=== PATIENT | female | born 2000 | race Caucasian/White ===

== ENCOUNTER 2018-08-27 08:00 | Outpatient (CLI) | payer OTHER ==
[2018-08-27 22:06] LABS: CANDIDA GROUP DNA NEGATIVE (NEGATIVE); CANDIDA KRUSEI DNA NEGATIVE (NEGATIVE); TRICHOMONAS VAGINALIS DNA NEGATIVE (NEGATIVE)
== END 2018-08-27 23:59 | disposition home or self-care (01) ==
LOC: LAB.R 08:00
PROVIDERS: ATTEND Nurse Practitioner Obstetrics & Gynecology
DX: R30.0 Dysuria (principal); N76.0 Acute vaginitis
CPT/HCPCS: 87086; 87661; 87801

== ENCOUNTER 2019-12-21 17:55 | Emergency (ER) | payer BC, OTHER ==
--- NOTE | 2019-12-21 18:25 | ED Physician Documentation ---
PD HPI ABD PAIN - Stated complaint Stated Complaint: ABD PAIN - Chief complaint Chief Complaint: Abd Pain - History obtained from History obtained from: Patient - Additional information Additional information: 19-year-old woman has had an IUD in place for approximately 2 to 3 years, has been amenorrheic since. She had fairly sudden onset pelvic pain last night, radiates to the back a little bit. There is no associated fever, urinary complaints, trouble with bowel or bladder issues. She never had it before. Review of Systems Constitutional: denies: Fever, Chills GI: reports: Abdominal Pain, Reviewed and negative. denies: Nausea, Vomiting, Constipation, Diarrhea : denies: Dysuria, Frequency PD PAST MEDICAL HISTORY - Past Medical History Past Medical History: No - Past Surgical History Past Surgical History: No - Present Medications Home Medications: Ambulatory Orders Medication Instructions Recorded Confirmed Hydrocodone/Acetaminophen 1 - 2 tab PO Q6H PRN #15 tablet 12/21/19 [Hydrocodone-Acetamin 5-325 mg] - Allergies Allergies/Adverse Reactions: Allergies Allergy/AdvReac Type Severity Reaction Status Date / Time No Known Drug Allergies Allergy Verified 12/21/19 18:16 - Social History Does the pt smoke?: No Smoking Status: Never smoker Does the pt drink ETOH?: Yes Does the pt have substance abuse?: No - Immunizations Immunizations are current?: Yes PD ED PE NORMAL - Vitals Vital signs reviewed: Yes - General General: Alert and oriented X 3, No acute distress - HEENT HEENT: PERRL, EOMI - Neck Neck: Supple, no meningeal sign, No bony TTP - Abdomen Abdomen: Soft, Other (Mild lower abdominal tenderness without surgical signs) - Derm Derm: No rash - Extremities Extremities: No edema, No calf tenderness / cord - Neuro Neuro: Alert and oriented X 3, Normal speech Results - Vitals Vitals: Vital Signs - 24 hr 12/21/19 12/21/19 18:03 18:09 Temperature 37.3 C Heart Rate 104 H 101 H Respiratory 16 16 Rate Blood Pressure 127/88 H 132/85 H O2 Saturation 99 99 Oxygen O2 Source Room air - Labs Labs: Laboratory Tests 12/21/19 12/21/19 12/21/19 18:25 18:31 18:31 WBC 9.7 RBC 4.93 Hgb 15.5 Hct 45.9 MCV 93.1 MCH 31.4 H MCHC 33.8 RDW 12.1 Plt Count 328 MPV 10.8 Neut # (Auto) 6.5 Lymph # (Auto) 2.4 [place] # (Auto) 0.6 Eos # (Auto) 0.1 Baso # (Auto) 0.1 Absolute Nucleated RBC 0.00 Nucleated RBC % 0.0 Sodium 137 Potassium 4.2 Chloride 101 Carbon Dioxide 28 Anion Gap 8.0 BUN 8 Creatinine 0.6 Estimated GFR (MDRD) 126 Glucose 114 H Calcium 10.1 Total Bilirubin 1.1 H AST 23 ALT 26 Alkaline Phosphatase 95 Total Protein 8.1 Albumin 5.1 Globulin 3.0 Albumin/Globulin Ratio 1.7 Lipase 30 Urine Color YELLOW Urine Clarity CLEAR Urine pH 6.5 Ur Specific [place] 1.010 Urine Protein NEGATIVE Urine Glucose (UA) NEGATIVE Urine Ketones NEGATIVE Urine Occult Blood NEGATIVE Urine Nitrite NEGATIVE Urine Bilirubin NEGATIVE Urine Urobilinogen 0.2 (NORMAL) Ur Leukocyte Esterase NEGATIVE Ur Microscopic Review NOT INDICATED Urine Culture Comments NOT INDICATED Urine HCG, Qual NEGATIVE PD MEDICAL DECISION MAKING - ED course ED course: 19-year-old woman with acute sudden onset pelvic pain, ultrasound showing hemorrhagic right ovarian cyst. No sign of torsion. Negative test. Discussed need for repeat ultrasound in about 6 weeks. Departure - Departure Disposition: 01 Home, Self Care Clinical Impression: Cyst of ovary Qualifiers: Laterality: right Qualified Code(s): N83.201 - Unspecified ovarian cyst, right side Condition: Good Record reviewed to determine appropriate education?: Yes Instructions: ED Cyst Ovarian Follow-Up: Jackie Almendarez CNM, [employer] [Provider Admit Priv/Credential] - Prescriptions: Hydrocodone/Acetaminophen [Hydrocodone-Acetamin 5-325 mg] 1 - 2 tab PO Q6H PRN #15 tablet PRN Reason: Pain Comments: Ibuprofen as needed for pain, also the hydrocodone if it is particularly bad. Do not drink or drive while taking the hydrocodone. Follow-up with your supervisor backfilling, recommend repeat ultrasound in approximately 6 weeks to ensure that the cyst has gone away. Return for new or worsening symptoms.
[2019-12-21 18:35] LABS: BILIRUBIN,URINE NEGATIVE (NEGATIVE); GLUCOSE, URINE (UA) NEGATIVE (NEGATIVE); KETONES,URINE (UA) NEGATIVE (NEGATIVE); LEUKOCYTE ESTERASE, URINE NEGATIVE (NEGATIVE); NITRITE,URINE NEGATIVE (NEGATIVE); OCCULT BLOOD,URINE NEGATIVE (NEGATIVE); PH,URINE 6.5 PH (5.0-7.5); PROTEIN,URINE NEGATIVE (NEGATIVE); UROBILINOGEN,URINE 0.2 (NORMAL) E.U./dL (NORMAL)
[2019-12-21 18:42] LABS: BASOPHILS # (AUTO) 0.1 10^3/uL (0.0-0.1); BASOPHILS % (AUTO) 0.6 %; EOSINOPHILS # (AUTO) 0.1 10^3/uL (0.0-0.7); EOSINOPHILS % (AUTO) 0.9 %; HGB - HEMOGLOBIN 15.5 g/dL (12.0-16.0); LYMPHOCYTES # (AUTO) 2.4 10^3/uL (1.5-3.5); LYMPHOCYTES % (AUTO) 24.8 %; MEAN CORPUSCULAR HEMOGLOBIN 31.4 pg (27.0-31.0); MEAN CORPUSCULAR HGB CONC 33.8 g/dL (32.0-36.0); MEAN CORPUSCULAR VOLUME 93.1 fL (81.0-99.0); MEAN PLATELET VOLUME 10.8 fL (7.9-10.8); MONOCYTES # (AUTO) 0.6 10^3/uL (0.0-1.0); MONOCYTES % (AUTO) 6.3 %; NEUTROPHILS # (AUTO) 6.5 10^3/uL (1.5-6.6); NEUTROPHILS % (AUTO) 66.9 %; PLT - PLATELET COUNT 328 10^3/uL (130-450); RED BLOOD COUNT 4.93 10^6/uL (4.20-5.40); RED CELL DISTRIBUTION WIDTH 12.1 % (12.0-15.0); WHITE BLOOD COUNT 9.7 x10^3/uL (4.8-10.8)
[2019-12-21 18:42] LABS: CLARITY,URINE CLEAR (CLEAR); HCG UR QUAL NEGATIVE
[2019-12-21 18:47] LABS: ALBUMIN 5.1 g/dL (3.2-5.5); ALBUMIN/GLOBULIN RATIO 1.7 (1.0-2.2); BILIRUBIN,TOTAL 1.1 mg/dL (0.2-1.0); CALCIUM 10.1 mg/dL (8.5-10.3); CREATININE 0.6 mg/dL (0.4-1.0); TOTAL PROTEIN 8.1 g/dL (6.7-8.2)
[2019-12-21] MEDS ORDERED: HYDROcod/ACET 5/325 Prepack 4 PO STA (19:21)
[2019-12-21 19:36] VITALS: BP 109/72
--- NOTE | 2019-12-21 19:37 | Ultrasound Report ---
PROCEDURE: Pelvic w/Transvag+Doppler Comp INDICATIONS: Pelvic pain TECHNIQUE: Real-time scanning was performed of the pelvic organs, with image documentation. Additional endovagi nal scanning was necessary due to incomplete visualization of the adnexal and endometrial structures by transabdominal scanning. COMPARISON: None. FINDINGS: Transabdominal scanning: Limited scanning through the kidneys shows no hydronephrosis. Small volume physiologic free fluid. Endovaginal scanning: Uterus: Normal in size measuring 4.3 x 5.3 x 7.1 cm. IUD is in place. No uterine mass. Normal thickne ss of the endometrium. Ovaries: Both ovaries are normal in size with normal blood flow. There is a complex cyst in the righ t ovary measuring 4.1 x 3.6 x 3.2 cm. This may represent a hemorrhagic cyst although this is not defi nitive. IMPRESSION: Complex cyst in the right ovary which may represent a hemorrhagic cyst although this is not definitiv e. Follow-up in 4-6 weeks recommended. Normal position of IUD. No acute finding. Reviewed by: Jarrett Velez MD on 12/21/2019 7:36 PM PDT Approved by: Jarrett Velez MD on 12/21/2019 7:36 PM PDT Station ID: [id number]
== END 2019-12-21 20:12 | disposition home or self-care (01) ==
LOC: ED 17:55
DX: N83.201 Unspecified ovarian cyst, right side (principal)
CPT/HCPCS: 36415; 76830; 76856; 80053; 81001; 81003; 81025; 83690; 85025; 87086; 93975; 99284

== ENCOUNTER 2020-11-02 17:45 | Emergency (ER) | payer BC, OTHER ==
[2020-11-02 18:25] LABS: BASOPHILS # (AUTO) 0.1 10^3/uL (0.0-0.1); BASOPHILS % (AUTO) 0.6 %; EOSINOPHILS # (AUTO) 0.1 10^3/uL (0.0-0.7); EOSINOPHILS % (AUTO) 1.4 %; HCT - HEMATOCRIT 39.5 % (37.0-47.0); HGB - HEMOGLOBIN 13.7 g/dL (12.0-16.0); LYMPHOCYTES # (AUTO) 2.2 10^3/uL (1.5-3.5); LYMPHOCYTES % (AUTO) 28.6 %; MEAN CORPUSCULAR HEMOGLOBIN 31.4 pg (27.0-31.0); MEAN CORPUSCULAR HGB CONC 34.7 g/dL (32.0-36.0); MEAN CORPUSCULAR VOLUME 90.6 fL (81.0-99.0); MEAN PLATELET VOLUME 10.5 fL (7.9-10.8); MONOCYTES # (AUTO) 0.6 10^3/uL (0.0-1.0); NEUTROPHILS # (AUTO) 4.8 10^3/uL (1.5-6.6); PLT - PLATELET COUNT 287 10^3/uL (130-450); RED BLOOD COUNT 4.36 10^6/uL (4.20-5.40); RED CELL DISTRIBUTION WIDTH 12.2 % (12.0-15.0); WHITE BLOOD COUNT 7.8 x10^3/uL (4.8-10.8)
[2020-11-02 18:34] LABS: ALBUMIN 4.4 g/dL (3.2-5.5); ALBUMIN/GLOBULIN RATIO 1.8 (1.0-2.2); CALCIUM 9.2 mg/dL (8.5-10.3); CREATININE 0.5 mg/dL (0.4-1.0); POTASSIUM 3.6 mmol/L (3.5-5.0); TOTAL PROTEIN 6.8 g/dL (6.7-8.2)
[2020-11-02] MEDS ORDERED: ONDANSETRON 4 MG/2 ML VIAL IVP STA (18:34)
[2020-11-02] MEDS ORDERED: SODIUM CHLORIDE 0.9% 1,000 ML IV STA (18:34)
--- NOTE | 2020-11-02 18:36 | ED Physician Documentation ---
History of Present Illness - Stated complaint Stated Complaint: ABD/BACK PX - Chief complaint Chief Complaint: Abd Pain - History obtained from History obtained from: Patient - History of Present Illness Timing: Today Pain level max: 10 Pain level now: 3 - Additonal information Additional information: Patient is a 20-year-old female has had nausea, vomiting and diarrhea for the past 2 to 3 days. Increasing abdominal pain yesterday. Starting to feel better today but still having pain. Came in for evaluation. She rates her pain as a 3 out of 10 currently. No fevers. No chills. She has an IUD. States she does not believe she is . No recent travel. No recent antibiotics. Occasionally the pain is in the right flank as well. Review of Systems Ten Systems: 10 systems reviewed and negative Constitutional: denies: Fever, Chills Ears: denies: Ear pain Nose: denies: Rhinorrhea / runny nose, Congestion Respiratory: denies: Cough GI: reports: Abdominal Pain, Nausea, Vomiting, Diarrhea : denies: Dysuria, Frequency, Hesitancy, Now EGA Skin: denies: Rash Musculoskeletal: denies: Neck pain, Back pain Neurologic: denies: Headache PD PAST MEDICAL HISTORY - Past Medical History Past Medical History: No - Past Surgical History Past Surgical History: No - Present Medications Home Medications: Ambulatory Orders Medication Instructions Recorded Confirmed Hyoscyamine Sulfate [Levsin-Sl] 0.125 mg SL Q6H PRN #30 tab 11/02/20 Ondansetron Odt [Zofran] 4 mg TL Q6H PRN #10 tablet 11/02/20 - Allergies Allergies/Adverse Reactions: Allergies Allergy/AdvReac Type Severity Reaction Status Date / Time No Known Drug Allergies Allergy Verified 11/02/20 18:00 - Social History Does the pt smoke?: No Smoking Status: Never smoker Does the pt drink ETOH?: Yes Does the pt have substance abuse?: No - Immunizations Immunizations are current?: Yes PD ED PE NORMAL - Vitals Vital signs reviewed: Yes - General General: Alert and oriented X 3, No acute distress, Well developed/nourished - HEENT HEENT: Moist mucous membranes - Neck Neck: Supple, no meningeal sign - Cardiac Cardiac: RRR, Strong equal pulses - Respiratory Respiratory: No respiratory distress, Clear bilaterally - Abdomen Abdomen: Normal bowel sounds, Soft, Non tender, Non distended - Back Back: No CVA TTP, No spinal TTP - Derm Derm: Warm and dry - Extremities Extremities: No edema - Neuro Neuro: Alert and oriented X 3 - Psych Psych: Normal mood, Normal affect Results - Vitals Vitals: Vital Signs - 24 hr 11/02/20 11/02/20 11/02/20 17:57 19:10 20:15 Temperature 37.0 C 37 C Heart Rate 83 81 81 Respiratory 14 15 15 Rate Blood Pressure 120/83 H 121/79 121/79 O2 Saturation 99 99 99 Oxygen O2 Source Room air - Labs Labs: Laboratory Tests 11/02/20 11/02/20 11/02/20 18:17 18:17 18:24 WBC 7.8 RBC 4.36 Hgb 13.7 Hct 39.5 MCV 90.6 MCH 31.4 H MCHC 34.7 RDW 12.2 Plt Count 287 MPV 10.5 Neut # (Auto) 4.8 Lymph # (Auto) 2.2 [place] # (Auto) 0.6 Eos # (Auto) 0.1 Baso # (Auto) 0.1 Absolute Nucleated RBC 0.00 Nucleated RBC % 0.0 Sodium 138 Potassium 3.6 Chloride 105 Carbon Dioxide 25 Anion Gap 8.0 BUN 10 Creatinine 0.5 Estimated GFR (MDRD) 154 Glucose 95 Calcium 9.2 Total Bilirubin 1.0 AST 19 ALT 23 Alkaline Phosphatase 82 Total Protein 6.8 Albumin 4.4 Globulin 2.4 Albumin/Globulin Ratio 1.8 Lipase 30 Urine Color YELLOW Urine Clarity CLEAR Urine pH 7.0 Ur Specific [place] 1.015 Urine Protein NEGATIVE Urine Glucose (UA) NEGATIVE Urine Ketones 15 H Urine Occult Blood NEGATIVE Urine Nitrite NEGATIVE Urine Bilirubin NEGATIVE Urine Urobilinogen 0.2 (NORMAL) Ur Leukocyte Esterase NEGATIVE Ur Microscopic Review NOT INDICATED Urine Culture Comments NOT INDICATED PD MEDICAL DECISION MAKING - ED course Complexity details: reviewed results, re-evaluated patient, considered differential, d/w patient ED course: Patient is very well-appearing, nontoxic. Afebrile. Tolerating p.o. without difficulty here. Feels better after Toradol, Zofran and IV fluids. Will prescribe Levsin and Zofran for home. Appears to be a viral gastroenteritis. Abdomen is soft, nontender nondistended on serial exam. Patient counseled regarding signs and symptoms for which I believe and urgent re-evaluation would be necessary. Patient with good understanding of and agreement to plan and is comfortable going home at this time This document was made in part using voice recognition software. While efforts are made to proofread this document, sound alike and grammatical errors may occur. Departure - Departure Disposition: 01 Home, Self Care Clinical Impression: Viral gastroenteritis, Dehydration Condition: Good Instructions: ED Gastroenteritis Viral Follow-Up: your,doctor as needed [Other] Prescriptions: Hyoscyamine Sulfate [Levsin-Sl] 0.125 mg SL Q6H PRN #30 tab PRN Reason: Abdominal Pain Ondansetron Odt [Zofran] 4 mg TL Q6H PRN #10 tablet PRN Reason: Nausea / Vomiting Comments: You can use the Zofran as needed for any nausea and vomiting at home. Continue Motrin or Tylenol as needed for pain. Return if you worsen. The Levsin will help with any abdominal cramping. Discharge Date/Time: 11/02/20 20:15
[2020-11-02 18:55] LABS: BILIRUBIN,URINE NEGATIVE (NEGATIVE); CLARITY,URINE CLEAR (CLEAR); GLUCOSE, URINE (UA) NEGATIVE (NEGATIVE); KETONES,URINE (UA) 15 mg/dL (NEGATIVE); LEUKOCYTE ESTERASE, URINE NEGATIVE (NEGATIVE); NITRITE,URINE NEGATIVE (NEGATIVE); OCCULT BLOOD,URINE NEGATIVE (NEGATIVE); PROTEIN,URINE NEGATIVE (NEGATIVE); UROBILINOGEN,URINE 0.2 (NORMAL) E.U./dL (NORMAL)
[2020-11-02 19:10] VITALS: BP 121/79
[2020-11-02] MEDS ORDERED: KETOROLAC 30 MG/ML VIAL IVP STA (19:53)
== END 2020-11-02 20:15 | disposition home or self-care (01) ==
LOC: ED 17:45
DX: A08.4 Viral intestinal infection, unspecified (principal); E86.0 Dehydration
CPT/HCPCS: 36415; 80053; 81001; 81003; 83690; 85025; 87086; 96361; 96374; 96375; 99284

== ENCOUNTER 2020-12-10 12:36 | Outpatient (CLI) | payer OTHER ==
[2020-12-10] MEDS ORDERED: IOPAMIDOL-300 100 ML VIAL ONE (12:50)
[2020-12-10] MEDS ORDERED: IOVERSOL 320 50 ML VIAL ONE (12:50)
--- NOTE | 2020-12-10 14:30 | CT Report ---
PROCEDURE: Abdomen/Pelvis W INDICATIONS: ABDOMINAL PAIN CONTRAST: IV CONTRAST: Isovue 300 ml: 100 PO CONTRAST: Optiray 320 ml50 TECHNIQUE: After the administration of oral and IV contrast, 5 mm thick sections acquired from the diaphragms to the symphysis. 5 mm thick coronal and sagittal reformats were acquired. For radiation dose reducti on, the following was used: automated exposure control, adjustment of mA and/or kV according to bruna ent size. COMPARISON: Correlation is made with pelvic ultrasound, 12/13/2019 FINDINGS: Image quality: Excellent. ABDOMEN: Lung bases: Lung bases are clear. Heart size is normal. Solid organs: Liver and spleen are normal in size and enhancement. Gallbladder wall does not appear thickened. Biliary system is non dilated. Pancreas enhances normally. No adrenal nodules. Kidn eys demonstrate normal size and enhancement, without hydronephrosis. Peritoneum and bowel: Bowel loops demonstrate normal wall thickness and caliber. No free fluid or a ir. A normal appendix is partially seen. Nodes and vessels: No retroperitoneal or mesenteric adenopathy by size criteria. Aorta and inferior vena cava are normal in size. Miscellaneous: No ventral hernias. Incidental note is made of body ornamentation artifact. PELVIS: Genitourinary: Bladder wall thickness is normal. An IUD is seen at the expected location. The uteru s demonstrates an unremarkable appearance for age. No adnexal masses are seen. Miscellaneous: No inguinal hernias or adenopathy. Bones: No suspicious bony lesions. No vertebral body compression fractures. IMPRESSION: A cause of abdominal pain is not identified. No hydronephrosis is seen. A normal appendix is partially seen. An IUD is seen at the expected location. Reviewed by: Tony Solano MD on 12/10/2020 1:29 PM [place] Approved by: Tony Solano MD on 12/10/2020 1:29 PM [place] Station ID: [id number]
[2020-12-10] MEDS ORDERED: IOVERSOL 320 50 ML VIAL PO ONE (15:55)
[2020-12-10] MEDS ORDERED: IOPAMIDOL-300 100 ML VIAL IVP ONE (15:55)
== END 2020-12-10 12:37 | disposition home or self-care (01) ==
LOC: DI 12:36
PROVIDERS: ATTEND Nurse Practitioner Family
DX: R10.9 Unspecified abdominal pain (principal); Z97.5 Presence of (intrauterine) contraceptive device
CPT/HCPCS: 74177; Q9967

== ENCOUNTER 2021-04-01 08:00 | Outpatient (CLI) | payer OTHER | END 2021-04-01 23:59 | LOC: LAB.N 08:00 | PROVIDERS: ATTEND Physician Assistant Medical | DX: U07.1 COVID-19 (principal) ==

== ENCOUNTER 2021-05-12 08:00 | Outpatient (CLI) | payer OTHER ==
--- NOTE | 2021-05-12 20:50 | XRAY Report ---
PROCEDURE: Lumbar Spine 2 View INDICATIONS: BACK PAIN, LUMBAR W/ RADICULOPATHY TECHNIQUE: 3 views of the lumbar spine were acquired. COMPARISON: None. FINDINGS: Bones: 5 [id number] vertebrae are present. There is straightening of the normal lumbar lordosi s, which may be related to positioning or muscle spasm. No vertebral body compression fractures. No suspicious bony lesions. No significant degenerative changes. Soft tissues: Overlying bowel gas pattern is normal. No suspicious soft tissue calcifications. Int rauterine device is seen projecting over the pelvis. IMPRESSION: No acute osseous abnormality. Straightening of the lumbar lordosis may be secondary to p ositioning or muscle spasm. Reviewed by: Franky Blair MD on 05/12/2021 8:49 PM PST Approved by: Franky Blair MD on 05/12/2021 8:49 PM PST Station ID: [id number]
== END 2021-05-12 23:59 ==
LOC: DI.N 08:00
PROVIDERS: ATTEND Family Medicine
DX: M54.16 Radiculopathy, lumbar region (principal)

== ENCOUNTER 2024-02-03 07:34 | Inpatient (IN) ==
[2024-02-03] MEDS ORDERED: LACTATED RINGERS 1,000 ML ONE (09:43)
[2024-02-03] MEDS: ceFAZolin (2G) 2 GM in SODIUM CHLORIDE 0.9% MINIBAG 100 ML IV ONE (09:53)
[2024-02-03 09:54] LABS: BASOPHILS # (AUTO) 0.1 10^3/uL (0.0-0.1); BASOPHILS % (AUTO) 0.6 %; EOSINOPHILS # (AUTO) 0.2 10^3/uL (0.0-0.7); EOSINOPHILS % (AUTO) 1.3 %; HCT - HEMATOCRIT 39.8 % (37.0-47.0); HGB - HEMOGLOBIN 12.9 g/dL (12.0-16.0); LYMPHOCYTES # (AUTO) 1.8 10^3/uL (1.5-3.5); LYMPHOCYTES % (AUTO) 16.2 %; MEAN CORPUSCULAR HEMOGLOBIN 30.9 pg (27.0-31.0); MEAN CORPUSCULAR HGB CONC 32.4 g/dL (32.0-36.0); MEAN CORPUSCULAR VOLUME 95.2 fL (81.0-99.0); MEAN PLATELET VOLUME 11.9 fL (7.9-10.8); MONOCYTES # (AUTO) 0.8 10^3/uL (0.0-1.0); MONOCYTES % (AUTO) 7.2 %; NEUTROPHILS % (AUTO) 70.9 %; PLT - PLATELET COUNT 234 10^3/uL (130-450); RED BLOOD COUNT 4.18 10^6/uL (4.20-5.40); RED CELL DISTRIBUTION WIDTH 14.9 % (12.0-15.0); WHITE BLOOD COUNT 11.3 x10^3/uL (4.8-10.8)
--- NOTE | 2024-02-03 09:56 | PROVIDER PROGRESS NOTE ---
HPI Current : Vital Signs Temperature 36.8 C 02/03/24 07:52 Pulse Rate 105 H 02/03/24 07:52 Respiratory Rate 16 02/03/24 07:52 Blood Pressure 115/75 02/03/24 07:52 Temperature 36.8 C 02/03/24 07:52 Pulse Rate 105 H 02/03/24 07:52 Respiratory Rate 16 02/03/24 07:52 Blood Pressure 115/75 02/03/24 07:52 Plan Plan: HPI: Patient is a 23-year-old G1, P0 at 31 weeks 2 days gestation presenting today for vaginal bleeding. She has a known placenta previa versus marginal placenta previa. She woke up this morning on thinking she hayes up, but exam today had a significant of blood. She continued to pass clots and active bleeding. She has good movement. No CARBAJAL/BV or RUQP. Denies nausea and vomiting. Denies urinary urgency or dysuria. Does have some suprapubic pressure on occasion. She gets her care at [facility], but is [facility] with [facility]. 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 Also has a marginal previa All other symptoms reviewed and were negative except per HPI. Course records pending PMH Migraines PSH No previous surgeries OB History SH Denies tobacco, alcohol, drugs Family History Mother: Migraines, hypercholesterolemia, [place] less than 65 Father: [place] less than 65 Sister: Asthma Maternal grandmother: Arthritis, diabetes, hypercholesterolemia Maternal grandfather: Diabetes, hypercholesterolemia, heart disease Allergies No known drug allergies Medications vitamin Magnesium for migraines Physical exam: General: Alert, oriented, no acute distress Head: Normal cephalic atraumatic Eyes: PERRLA, extraocular motions intact. Respiratory: Normal rate of respiration. No accessory muscle use, normal respiratory effort. Cardiovascular: Regular rate and rhythm Abdomen: Gravid, nontender, nondistended Extremities: Normal range of motion Neuro: Oriented x3. Normal movements Psych: Appropriate mood and affect. Normal judgment and insight SSE: Moderate amount of blood in vagina, removed with cold pads x 3 small amount of active bleeding from cervical os. Os is visually closed, however approximately 1.5 cm of what appeared to be prolapsed membranes presents. FHT: 145 beats minute baseline, moderate variability, accelerations present, no decelerations. Cogswell: Quiescent Bedside ultrasound: ASHOK 10.2 cm Plan Vaginal bleeding in :: -Currently bleeding possibly from marginal placental previa versus rupture of membranes. -Labs pending. Fetus category 1. -Will transfer to [facility] for higher level of care. I appr eciate the care and consult from Dr. Weeks. -Due to the gestational age of the fetus, will start magnesium sulfate for neuroprotection. 4gm bolus then 1gm/hr -After discussing with MFM, will give cefazolin 2gm for GBS unknown, but will hold latency antibiotics until further evaluation -Will also give steroids for possible delivery. -CBC, type and screen, UA, vaginosis, GC/CT, GBS collected 31 weeks gestation Amniotic band syndrome
[2024-02-03] MEDS: LACTATED RINGERS 1,000 ML IV SCH (10:00)
[2024-02-03] MEDS: MAGNESIUM SULFATE IN WATER 20 GM/500 ML IV.SOLN IV SCH (10:05)
[2024-02-03] MEDS: MAGNESIUM SULFATE 4 GRAM 4 GM/50 ML BAG IV ONE (10:06)
[2024-02-03] MEDS: BETAMETHASONE 30 MG/5 ML VIAL IM ONE (10:08)
[2024-02-03 10:49] LABS: BILIRUBIN,URINE NEGATIVE (NEGATIVE); GLUCOSE, URINE (UA) NEGATIVE (NEGATIVE); KETONES,URINE (UA) NEGATIVE (NEGATIVE); LEUKOCYTE ESTERASE, URINE NEGATIVE (NEGATIVE); NITRITE,URINE NEGATIVE (NEGATIVE); OCCULT BLOOD,URINE MODERATE (NEGATIVE); PROTEIN,URINE 30 mg/dL (NEGATIVE); UROBILINOGEN,URINE 0.2 (NORMAL) E.U./dL (NORMAL)
[2024-02-03 10:52] LABS: CLARITY,URINE HAZY (CLEAR)
[2024-02-03 11:04] LABS: BACTERIA,URINE Moderate /HPF (None Seen); SQUAMOUS EPITHELIAL CELL,UR MOD Squamous (<= Few); WBC,URINE 0-3 /HPF (0-5)
[2024-02-03 11:38] LABS: CHLAMYDIA TRACHOMATIS DNA NEGATIVE (NEGATIVE); NEISSERIA GONORRHOEAE DNA NEGATIVE (NEGATIVE)
[2024-02-03 11:45] LABS: BACTERIAL VAGINOSIS DNA NEGATIVE (NEGATIVE); CANDIDA GLABRATA DNA NEGATIVE (NEGATIVE); CANDIDA GROUP DNA POSITIVE (NEGATIVE); CANDIDA KRUSEI DNA NEGATIVE (NEGATIVE); TRICHOMONAS VAGINALIS DNA NEGATIVE (NEGATIVE)
== END 2024-02-03 11:00 | disposition short-term general hospital (02) | DRG 833 ==
LOC: WFO 07:34 → FBP 07:40
PROVIDERS: ADMIT Obstetrics & Gynecology; ATTEND Obstetrics & Gynecology